=== PATIENT | female | born 1975 | race African-American/Black ===

== ENCOUNTER 2016-06-20 07:34 | Emergency (ER) | payer OTHER ==
[2016-06-20] MEDS ORDERED: NORCO-10 PO ONE (08:36)
--- NOTE | 2016-06-20 08:39 | Diag Imaging Result Document ---
PROCEDURE NAME: HEAD/C-SPINE W/O CONTRAST - 06/20/[address]: A CT dose reduction protocol was used. COMPARISON: None. FINDINGS: The ventricles and sulci are normal in size and contour. There is no mass, hemorrhage, or evidence of acute ischemia. The bony calvaria is intact. The visualized paranasal sinuses and mastoid air cells are clear. IMPRESSION: Negative head CT. CT CERVICAL SPINE: A CT dose reduction protocol was used. COMPARISON: None. FINDINGS: Alignment is anatomic. Vertebral body heights and intervertebral disc spaces are preserved. Neural foramina are patent. Soft tissues are clear. IMPRESSION: Negative Exam. MTDD
[2016-06-20 09:10] LABS: URINE CULTURE NEEDED? NO; URINE MICRO REVIEW NEEDED? NO; URINE SOURCE CLEAN CATCH
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
--- NOTE | 2016-06-20 09:12 | Diag Imaging Result Document ---
PROCEDURE NAME: CHEST-1 VIEW - 06/20/2016 SEATED AP RADIOGRAPH OF THE CHEST: COMPARISON: 12/16/2014. FINDINGS: The lungs are grossly clear. There is no discrete pleural fluid collection or pneumothorax. The cardiomediastinal silhouette and upper airway are grossly unremarkable. IMPRESSION: No evidence of acute chest pathology.
[2016-06-20 09:14] LABS: BILIRUBIN URINE NEGATIVE (NEGATIVE); BLOOD URINE NEGATIVE (NEGATIVE); COLOR YELLOW; GLUCOSE URINE NEGATIVE (NEGATIVE); LEUKOCYTES URINE NEGATIVE (NEGATIVE); NITRITE URINE NEGATIVE (NEGATIVE); PH URINE 7.5; PROTEIN URINE NEGATIVE (NEGATIVE); SP GRAVITY URINE 1.009; TURBIDITY URINE CLEAR (CLEAR); UROBILINOGEN URINE NORMAL (NORMAL)
[2016-06-20 09:34] LABS: UR AMPHETAMINES QUAL NONE DETECTED (NONE DETECT); UR BARBITUATES QUAL NONE DETECTED (NONE DETECT); UR BENZODIAZEPIN QUAL NONE DETECTED (NONE DETECT); UR CANNABINOIDS QUAL PRESUMPTIVE POSITIVE (NONE DETECT); UR COCAINE QUAL NONE DETECTED (NONE DETECT); UR METHADONE QUAL NONE DETECTED (NONE DETECT); UR OPIATES QUAL NONE DETECTED (NONE DETECT); UR OXYCODONE QUAL NONE DETECTED (NONE DETECT); UR PCP QUAL NONE DETECTED (NONE DETECT)
[2016-06-20 09:39] LABS: UR EPITHELIAL CELLS <10 /HPF (<10); URINE BACTERIA NEGATIVE /HPF; URINE RBC <10 /HPF (<10); URINE WBC <10 /HPF (<10)
--- NOTE | 2016-06-20 09:40 | Diag Imaging Result Document ---
PROCEDURE NAME: LUMBAR SPINE - 06/20/2016 LUMBOSACRAL SPINE SERIES WITH OBLIQUES, 6 VIEWS: FINDINGS: The pedicles are intact. There are surgical clips in the left upper quadrant and gallbladder fossa. There is stool throughout the colon. Disk spaces are well maintained and there is no evidence of fracture or subluxation. Compared to the previous study of 09/03/2014, the appearance of the lumbar spine has not changed significantly. IMPRESSION: No evidence of acute bony disease. Constipation.
[2016-06-20 10:06] VITALS: BP 134/74
[2016-06-20] MEDS ORDERED: ZOFRAN ODT PO ONE (10:50)
[2016-06-20] MEDS ORDERED: ZOFRAN ODT ONE (10:51)
== END 2016-06-20 10:08 | disposition home or self-care (01) ==
LOC: EDBD → ED 07:34
DX: S16.1XXA Strain of muscle, fascia and tendon at neck level, initial encounter (principal); S39.012A Strain of muscle, fascia and tendon of lower back, initial encounter; M54.5 Low back pain; M54.2 Cervicalgia; M79.1 Myalgia; R51 Headache; R07.9 Chest pain, unspecified; V89.2XXA Person injured in unspecified motor-vehicle accident, traffic, initial encounter
CPT/HCPCS: 70450; 71010; 72110; 72125; 81001; G0480; 80324; 80345; 80346; 80349; 80353; 80358; 80361; 80365; 83992